=== PATIENT | female | born 1990 | race Caucasian/White ===

== ENCOUNTER 2024-09-15 07:25 | Outpatient (REF) | payer BC, SELFPAY ==
[2024-09-15 07:49] LABS: MANUAL DIFF FLAG NO
[2024-09-15 08:11] LABS: Basophils Absolute Auto 0.1 X10*3/uL (0.0-0.2); Basophils Percent Auto 1.1 % (0-2); Eosinophils Absolute Auto 0.3 X10*3/uL (0.0-0.4); Eosinophils Percent Auto 5.3 % (0-4); Hematocrit 40.1 % (37.0-47.0); Hemoglobin 13.1 g/dl (12.0-16.0); Imm Gran Abs Auto 0.01 X10*3/uL (0.00-0.03); Imm Gran Pct Auto 0.2 % (0.0-0.4); Lymphocytes Absolute Auto 2.4 X10*3/uL (1.2-4.9); Lymphocytes Percent Auto 44.2 % (20-40); Mean Corpuscular HGB Conc 32.7 g/dl (31.0-35.0); Mean Corpuscular Volume 88.9 fL (80.0-98.0); Mean Platelet Volume 9.3 fL (9.4-12.3); Monocytes Absolute Auto 0.4 X10*3/uL (0.1-1.2); Monocytes Percent Auto 7.4 % (2-11); Neutrophils Absolute Auto 2.3 x10*3/uL (2.0-8.3); Neutrophils Percent Auto 41.8 % (45-73); Platelet Count 373 X10*3/uL (160-400); Red Blood Count 4.51 X10*6/uL (4.20-5.50); Red Cell Distribution Width 12.5 % (11.0-16.0); White Blood Count 5.5 X10*3/uL (4.8-10.8)
[2024-09-15 08:19] LABS: Estimated Average Glucose 103 mg/dL; Hemoglobin A1C 113.2787 umol/L; Hemoglobin A1c % 5.2 % (<6.0); Total Hemoglobin (HGBA1C) 3438.8917 umol/L
[2024-09-15 08:20] LABS: Appearance Urine Clear; Color Urine Yellow; Glucose Urine UA Negative (Negative); Leukocyte Esterase Urine Small (1+) (Negative); Nitrite Urine Negative (Negative); PH 5.5 (5.0-9.0); UMIC TRIGGER UA YES; Urine Blood Large (3+) (Negative); Urine Ketones Negative (Negative); Urine Protein Negative (Neg-Trace)
[2024-09-15 08:21] LABS: UPreg QC Valid YES; Urine Pregnancy NEGATIVE (NEGATIVE)
[2024-09-15 08:32] LABS: Bacteria Urine None Seen (None Seen); Hyaline Casts Urine 0-2 /LPF (0-2); RBC Urine >20 /HPF (0-2); WBC Urine 0-5 /HPF (0-5)
[2024-09-15 08:49] LABS: Alanine Aminotransferase 17 U/L (0-31); Albumin Level 4.5 g/dL (3.5-5.0); Alkaline Phosphatase 75 U/L (39-117); Anion Gap 12 (12-20); Aspartate Amino Transferase 21 U/L (5-31); Bilirubin Total 0.4 mg/dL (0.0-1.0); Blood Urea Nitrogen 14 mg/dL (9-16); Calcium 9.3 mg/dL (8.4-10.2); Carbon Dioxide 22 mmol/L (22-29); Chloride 109 mmol/L (96-108); Cholesterol 205 mg/dL (<200); Estimated Glomerular Filt Rate > 60; Glucose Fasting 88 mg/dL (60-99); HDL Cholesterol 44 mg/dL (>40); Iron 112 mcg/dL (30-160); LDL Cholesterol Calculated 119 mg/dL (<100); Magnesium 1.9 mg/dL (1.6-2.6); Percent Iron Saturation 32 % (15-50); Potassium 3.9 mmol/L (3.3-5.1); Sodium 139 mmol/L (135-145); Total Iron Binding Capacity 345 mcg/dL (228-428); Total Protein 8.1 g/dL (6.5-8.0); Triglycerides 210 mg/dL (<150); Unsaturated Iron Binding 233 ug/dL
[2024-09-15 08:53] LABS: Erythrocyte Sedimentation Rate 17 MM/HR (0-20)
[2024-09-15 09:10] LABS: Free T4 (Free Thyroxine) 1.05 ng/dL (0.71-1.85); Thyroid Stimulating Hormone 1.72 uIU/mL (0.32-4.0); Vitamin D 25-OH Total 15.6 ng/mL (>30)
[2024-09-15 09:17] LABS: Folate 11.8 ng/mL (> or = 4.0); Vitamin B12 330 pg/mL (200-900)
[2024-09-16 17:59] LABS: Homocysteine 11.1 umol/L (<10.4)
[2024-09-18 18:08] LABS: Methylmalonic Acid 436 nmol/L (55-335)
[2024-09-19 17:33] LABS: Vitamin B6 5.7 ng/mL (2.1-21.7)
[2024-09-20 15:18] LABS: Vitamin B1 15 nmol/L (8-30)
== END 2024-09-15 07:26 | disposition home or self-care (01) ==
LOC: HO.LAB 07:25
PROVIDERS: PCP Physician Assistant; Visit Provider Psychiatry & Neurology Psychiatry
DX: F39 Unspecified mood [affective] disorder (principal); F41.1 Generalized anxiety disorder; Z13.1 Encounter for screening for diabetes mellitus
CPT/HCPCS: 36415; 80053; 80061; 81001; 81025; 82306; 82607; 82746; 83036; 83090; 83540; 83735; 83921; 84207; 84425; 84439; 84443; 85025; 85652

== ENCOUNTER → 2024-09-15 08:45 | Outpatient (BNV) | payer BC, SELFPAY | PROVIDERS: Visit Provider Psychiatry & Neurology Psychiatry | DX: F33.2 Major depressive disorder, recurrent severe without psychotic features (principal); F43.10 Post-traumatic stress disorder, unspecified; F41.1 Generalized anxiety disorder | CPT/HCPCS: 90792 ==

== ENCOUNTER 2024-10-05 09:45 | Outpatient (RCR) | payer BC, SELFPAY ==
[2024-09-07 11:42] VITALS: BMI 35.6
[2024-09-07 11:43] VITALS: BP 126/96; PULSE 76; TEMP 37.4
--- NOTE | 2024-09-07 12:30 | PC.ADMIT ---
Patient is a 34 year old female who was referred to PHP by her PCP d/t increased depression and anxiety. Patient is taking PAMELA from work d/t her symptoms and reports difficulty functioning for the past several months. Patient reports having depression sxs in the past and was usually able to get herself out of it however has been unable to do this at this time. Patient unable to identify stresses contributing to her symptoms. She did reports being on Lexapro for 2.5-3 years with good effect. Feels this is not working anymore. Patient reports having panic attack prior to going to work at her previous job and instead of calling out of work she reports she impulsively quit her previous job however reports she was able to get a new job in 2 days. Reports having her first appointment with psychiatric medication prescriber and was taken off Lexapro and put on Sertraline. Patient is alert and oriented x4, Calm and cooperative. She presented with depressed mood and tearful affect during the assessment. She denied SI currently however reports having passive thoughts when feeling overwhelmed with anxiety. Patient stated, It's in the background, no active thoughts or plans . Patient was given a copy of her safety plan if needed. Patient reports no motivation to do anything and decreased energy. She reports 50 lb weight gain over the past year. She reports feeling much guilt about not being able to function to the point she is spending much time in bed and her is taking over her responsibilities. She does report her is very supportive and is thankful to have him. Medications reconciled with patient and patient's pharmacy. She reports taking medications as prescribed.
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
--- NOTE | 2024-09-09 15:44 | PHP/IOPCOSI ---
Pt's case has been opened and reviewed in treatment team.
--- NOTE | 2024-09-17 18:26 | P.PNPSP_ITS ---
Subjective Subjective Date of Service: 09/17/24 Reason For Visit: depression,anxiety Interim History: Patient reports continued struggles with emotional regulation is up and down having crying spells getting easily overwhelmed feeling helpless and demoralized. Interfering with ADLs and overall functioning. She reports high levels of anxiety directly and indirectly related to childhood trauma and stress. She reports ?freezing a lot and having a lot of physical symptoms, racing heart, muscle tension, fatigue, weakness, sometimes wakes feeling sweaty. Some of her anxiety is complicated by POTS and she has been seen by a noc analyst and is currently on metoprolol ER 100 mg qd for elevated heart rate. Even her POTS being better managed, anxiety persists. The anxiety has been more noticable especially in the later afternoon and evenings, and wakes with anxiety and is prone to stressful dreams. She is not sure if it is just opening up in groups has made her feel more vulnerable, but has been definitely crying more and this past week. Feeling demoralized, helpless, transiently hopeless passive SI but denies any current thoughts of harming herself. Describes high emotional reactivity, some hypervigilance and ruminative thoughts. She relays history of being hypersensitive individual had some developmental history of toe-walking, delayed speech, tactile sensitivities. She recalls having to sign in director of cardiology service line in order to communicate due to language delays. Of note she was born 6 weeks premature. She is not aware of any developmental developmental diagnoses, learning delays, ADHD or autism spectrum. Medication Compliance: Yes Side effects from medications: No Attending Groups: Yes Review of Systems Acute medical concerns: No Mental Status Exam Mental Status Exam Narrative: Alert, oriented, in no acute distress. Calm, cooperative, engaged. No psychomotor agitation or neurovegetative retardation. Eye contact maintained. Mood depressed, affect variable, labile, no irritability or expansiveness. Speech normal. Thought process linear, coherent, no FOI/PAMELA. Thought content related to stressors, transient hopelessness/passive SI without any active SI, intention or plan to harm self. Denies AI or HI. Denies AH or VH. No paranoia or delusional content elicited. No evidence of psychosis. Insight and judgment - fair but adequate. 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 - Anosmia Assessment and Plan: lifelong symptom, denies any recall trauma, 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 Routine lab work ordered as indicated EKG, routine for baseline QTc for medication considerations as indicated UDS as indicated VS reviewed (09/07): abrefile, BP 126/96;?76 bpm Continue to monitor Patient educated on: diagnosis and medication risk/benefits Informed Consent: understands Reason for contiued partial hosp. stay Substantial Risk for: inability to function, rapid decompensation and med/psych decompensation Certification I certify that partial hospital treatment is medically necessary due to the symptoms and problems resulting from the patient's mental illness and the failure to treat the patient at the partial hospital level of care would likely result in the patient requiring inpatient psychiatric care which could not be prevented at a less intensive level of care. Total time managing care of this patient today __30__ minutes. Discharge Plan Discharge Attending provider: Yuridia Siddiqui Medications: New aripiprazole 2 mg tablet 2 mg PO BEDTIME Qty: 14 0RF prazosin 1 mg capsule 1 mg PO BEDTIME Qty: 14 0RF Continued metoprolol succinate 100 mg Tablet Extended Release 24 Hr 100 mg PO DAILY sumatriptan succinate 50 mg Tablet See Rx Instructions .ROUTE .COMPLEX PRN (Reason: Migraine Headache) Patient Comments: Patient stated she is taking this as prescribed and recently picked up a new prescription. Rx Instructions: do not exceed 4 doses per 24 hrs Take one on onset of migraine. MR in 2 hours if ineffective. Last filled 08/2023 topiramate 25 mg Tablet 50 mg PO DAILY Patient Comments: Patient stated she is taking this as prescribed and recently picked up a refill of the medication. Rx Instructions: Take one tab daily for one week then increase to 2 tabs daily. Last filled 06/30/24 #54. lorazepam [Ativan] 0.5 mg Tablet 0.5 mg PO DAILY PRN (Reason: Anxiety) hydroxyzine HCl 25 mg Tablet 25 mg PO QID PRN (Reason: Anxiety) naproxen 500 mg Tablet 500 mg PO BID Rx Instructions: Take first onset of migraine x 14 days. Last filled 09/08/24. Changed sertraline 25 mg Tablet 37.5 mg PO DAILY Qty: 45 0RF Print Language: Cam[place]onian
--- NOTE | 2024-09-20 16:51 | P.PNPSP_ITS ---
Subjective Subjective Date of Service: 09/20/24 Reason For Visit: depression,anxiety Interim History: Patient seen for follow-up. She started on Abilify 1 mg (half tablet) for the first 2 days and then increased dose to 2 mg yesterday. She has tolerated it well, Even at this low dose, I can feel there's a change. I do more stable.. I didn't end up crying all weekend, which was an amazing feat . Her family did notice a difference. She was able to shower is just generally function. She also started prazosin 1mg and took this on Friday and Friday nights however was experiencing some blurred vision during sleep when she would only that noticed when she woke up to check her phone at lights since blurry and brighter she denies any eye pain did not notice any vision changes by morning. She did not take prazosin last night and did not notice this occurrence last night. She is still having some difficulty with sleep, Abilify seems to help her fall asleep easier, but is not sedating enough to help her sleep through the night. She has a prescription for lorazepam however she doesnt take this as she feels it has never been helpful. She finds hydroxyzine much more helpful for anxiety and for sleep but uses it sparingly out of fear of tolerance. She says it is well tolerated, she is encouraged for the time being to take this make sure she is getting optimal sleep. Medication Compliance: Yes Side effects from medications: Yes (as noted) Attending Groups: Yes Review of Systems Acute medical concerns: No Mental Status Exam Mental Status Exam Narrative: Alert, oriented, in no acute distress. Calm, cooperative, engaged. No psychomotor agitation or neurovegetative retardation. Eye contact maintained. Mood less lability, affect variable, brighter, no irritability or expansiveness. Speech normal. Thought process linear, coherent, no FOI/PAMELA. Thought content related to stressors, transient hopelessness/passive SI without any active SI, intention or plan to harm self. Denies AI or HI. Denies AH or VH. No paranoia or delusional content elicited. No evidence of psychosis. Insight and judgment - fair but adequate. 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 - Anosmia Assessment and Plan: lifelong symptom, denies any recall trauma, 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 Plan continue Abilify 2 mg qd hold prazosin 1 mg qhs take hydroxyzine hcl 12.5-25 mg qhs as well as TID prn anxiety continue sertraline 50 mg qd (may consider further titration next week) continue other regular medications?- topiramate 50 mg qd, sumatriptan, naltrexone 500 mg BID, metoprolol 100 mg qam Routine lab work ordered as indicated EKG, routine for baseline QTc for medication considerations as indicated UDS as indicated VS reviewed (09/07): abrefile, BP 126/96;?76 bpm Continue to monitor Patient educated on: diagnosis and medication risk/benefits Informed Consent: understands Reason for contiued partial hosp. stay Substantial Risk for: med/psych decompensation Certification I certify that partial hospital treatment is medically necessary due to the symptoms and problems resulting from the patient's mental illness and the failure to treat the patient at the partial hospital level of care would likely result in the patient requiring inpatient psychiatric care which could not be prevented at a less intensive level of care. Total time managing care of this patient today _30___ minutes. Discharge Plan Discharge Attending provider: Yuridia Siddiqui Medications: New aripiprazole 2 mg tablet 2 mg PO BEDTIME Qty: 14 0RF prazosin 1 mg capsule 1 mg PO BEDTIME Qty: 14 0RF Continued metoprolol succinate 100 mg Tablet Extended Release 24 Hr 100 mg PO DAILY sumatriptan succinate 50 mg Tablet See Rx Instructions .ROUTE .COMPLEX PRN (Reason: Migraine Headache) Patient Comments: Patient stated she is taking this as prescribed and recently picked up a new prescription. Rx Instructions: do not exceed 4 doses per 24 hrs Take one on onset of migraine. MR in 2 hours if ineffective. Last filled 08/2023 topiramate 25 mg Tablet 50 mg PO DAILY Patient Comments: Patient stated she is taking this as prescribed and recently picked up a refill of the medication. Rx Instructions: Take one tab daily for one week then increase to 2 tabs daily. Last filled 06/30/24 #54. lorazepam [Ativan] 0.5 mg Tablet 0.5 mg PO DAILY PRN (Reason: Anxiety) hydroxyzine HCl 25 mg Tablet 25 mg PO QID PRN (Reason: Anxiety) naproxen 500 mg Tablet 500 mg PO BID Rx Instructions: Take first onset of migraine x 14 days. Last filled 09/08/24. Changed sertraline 25 mg Tablet 37.5 mg PO DAILY Qty: 45 0RF Print Language: [place] Telehealth Telehealth Telehealth Platform: Other (please specify) ([employer]) Location of provider rendering services: other (private office) Location of patient: other ([facility]) Patient Identification confirmed using: Name, : Yes Telehealth method: video Patient verbally consented to treatment: Yes
--- NOTE | 2024-09-21 23:13 | HO.PHPPROGNO ---
Subjective Subjective Date of Service: 09/21/24 Reason For Visit: depression,anxiety Interim History: Patient seen for follow-up regarding visual disturbance. Held prazosin and continued on Abilify 2 mg. She continues to experience photophobia is especially sensitive to lights when she wakes at night any source of light even with her eyes shut light can appear to be ?dropping a flickering. She notices it is worse when she wakes in the middle of the night and it takes about 2 minutes to stabilize (stroking). She also notices this problem even during the day if she closes her eyes for any extended amount of time or puts her head down when she opens her eyes lights will appear to be pulsating and flickering and takes a few minutes to radha. However light sensitivity persists through the day does improve later in the day but does not fully resolve. And does not appear to be any better since she has been holding the prazosin. She has been mindful to assess whether it is affecting her visual acuity; she put on her glasses at night and says there is no blurriness noted (so there does not appear to be any myopic shift). Appears to be more related to photophobia. In fact, she examined her pupils in the mirror witness strobing occurs and notices that even with shining a light in her eyes there is initially no pupillary response for a minute or 2, and then eventually her pupils begin to respond although somewhat sluggishly. She denies any eye pain but experiences something that feels like muscle tense this in or behind her eye. Despite these does not appear that they are triggering any migraines and she does not feel they are likely related to ora. Last migraine occurred over a week ago. She has has not had an eye exam for since 2022 and agrees to make an appointment schedule an appointment today. For now we will hold Abilify since symptoms started to occur on Friday (day 2) of taking ABilify. She will continue only on Zoloft at 50 mg. We increased the dose over a week ago (from 25 mg). If her vision problems do not improve/resolve with holding Abilify for the next few days, we will consider whether it is the Zoloft that is affecting her vision. She is not eager to stop the Abilify (but agrees with the rationale), says she has not felt this stable in a long time. She notes having a really good weekend feeling more upbeat and stable, and better able to function and engage in life. Most notably, did not cry or get over-emotional in the past 3 or 4 days which is ?unprecedented?. She is hoping to find a way to make the Abilify work. We discussed a trying to put it back on at 1 mg a day or perhaps splitting the dose to see if this is better tolerated for now will will hold Abilify in follow-up later in the week. Medication Compliance: Yes Side effects from medications: No Attending Groups: Yes Review of Systems Acute medical concerns: No Mental Status Exam Mental Status Exam Narrative: Alert, oriented, in no acute distress. Calm, cooperative, engaged. No psychomotor agitation or neurovegetative retardation. Eye contact maintained. Mood less lability, affect variable, brighter, no irritability or expansiveness. Speech normal. Thought process linear, coherent, no FOI/PAMELA. Thought content related to stressors, future-oriented, denies hopelessness or SI, intention or plan to harm self. Denies AI or HI. Denies AH or VH. No paranoia or delusional content elicited. No evidence of psychosis. Insight and judgment good. 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5 mg qhs continue other regular medications?- topiramate 50 mg qd, sumatriptan, naltrexone 500 mg BID, metoprolol 100 mg qam Routine lab work ordered as indicated EKG, routine for baseline QTc for medication considerations as indicated UDS as indicated VS reviewed (09/07): abrefile, BP 126/96;?76 bpm Continue to monitor Patient educated on: diagnosis, medication risk/benefits and medical condition Informed Consent: understands Reason for contiued partial hosp. stay Substantial Risk for: med/psych decompensation Certification I certify that partial hospital treatment is medically necessary due to the symptoms and problems resulting from the patient's mental illness and the failure to treat the patient at the partial hospital level of care would likely result in the patient requiring inpatient psychiatric care which could not be prevented at a less intensive level of care. Total time managing care of this patient today _40___ minutes. Discharge Plan Discharge Attending provider: Yuridia Siddiqui Medications: New aripiprazole 2 mg tablet 2 mg PO BEDTIME Qty: 14 0RF prazosin 1 mg capsule 1 mg PO BEDTIME Qty: 14 0RF ergocalciferol (vitamin D2) [Vitamin D2] 1,250 mcg (50,000 unit) capsule 1,250 mcg PO QWEEK Qty: 10 0RF clonazepam 0.5 mg tablet 0.25 mg PO BID Qty: 7 0RF Continued metoprolol succinate 100 mg Tablet Extended Release 24 Hr 100 mg PO DAILY sumatriptan succinate 50 mg Tablet See Rx Instructions .ROUTE .COMPLEX PRN (Reason: Migraine Headache) Patient Comments: Patient stated she is taking this as prescribed and recently picked up a new prescription. Rx Instructions: do not exceed 4 doses per 24 hrs Take one on onset of migraine. MR in 2 hours if ineffective. Last filled 08/2023 topiramate 25 mg Tablet 50 mg PO DAILY Patient Comments: Patient stated she is taking this as prescribed and recently picked up a refill of the medication. Rx Instructions: Take one tab daily for one week then increase to 2 tabs daily. Last filled 06/30/24 #54. lorazepam [Ativan] 0.5 mg Tablet 0.5 mg PO DAILY PRN (Reason: Anxiety) hydroxyzine HCl 25 mg Tablet 25 mg PO QID PRN (Reason: Anxiety) naproxen 500 mg Tablet 500 mg PO BID Rx Instructions: Take first onset of migraine x 14 days. Last filled 09/08/24. Changed sertraline 25 mg Tablet 37.5 mg PO DAILY Qty: 45 0RF Print Language: [place]
--- NOTE | 2024-09-24 23:52 | HO.PHPPROGNO ---
Subjective Subjective Date of Service: 09/23/24 Reason For Visit: depression,anxiety Interim History: So wemaeve, th SI is back Patient has marked decline in past 2 days since holding ABilify. Continued issues with vision, no change, not any better or worse.. I can look at the ground and see light pulsing still , complaints sound more like photophobia rather than worsening of myopia since says these disturbance does not appear to cause exacerbation of short-sightedness. Does not affect vision acuity. Will consider whether SSRI may be causing disturbance (laura given photophobia) rather than myopic shift which is more likely to be caused by neuroleptic. Will wait for findings from roll forming machine operator, she was able to secure an urgent appointment at 2:30 today. She will request findings to be faxed over to [facility]. She does not feel it is affecting her migraines nore does she feel it's related. She denies any eye pain or discomfort. Not associated with headache, dizziness, numbness or tingling. SI is intrusive and transient. Denies any specific plan, intention or urge to act on SI thoughts. Sleep, appetite stable. Medication Compliance: Yes Side effects from medications: Yes (as noted) Attending Groups: Yes Review of Systems Acute medical concerns: Yes patient has an eye appointment at 2:30pm Mental Status Exam Mental Status Exam Narrative: Alert, oriented, in no acute distress. Calm, cooperative, engaged. No psychomotor agitation or neurovegetative retardation. Eye contact maintained. Mood less lability, affect variable, brighter, still some tearfulness on and off noted. Speech normal. Thought process linear, coherent, no FOI/PAMELA. Thought content related to stressors, future-oriented, denies hopelessness or SI, intention or plan to harm self. Denies AI or HI. Denies AH or VH. No paranoia or delusional content elicited. No evidence of psychosis. Insight and judgment good. 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 - Anosmia Assessment and Plan: lifelong symptom, denies any recall trauma, 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 (5) Migraine: Status: Acute Code(s): G43.909 - Migraine, unspecified, not intractable, without status migrainosus (6) Visual disturbance: Status: Acute Code(s): H53.9 - Unspecified visual disturbance Assessment and Plan: bilateral (appears to be medication-related) appears to be more related to photophobia (rather than affecting accommodation or visual acuity) Plan continue PHP still holding Abilify still holding prazosin 1 mg qhs continue sertraline 50 mg qd for now may take hydroxyzine hcl 12.5-25 mg qhs as well as TID prn anxiety may take clonazepam 0.5 mg qhs prn (finds this helpful, will limit to 3x/wk) continue other regular medications?- topiramate 50 mg qd, sumatriptan, naltrexone 500 mg BID, metoprolol 100 mg qam Routine lab work ordered as indicated EKG, routine for baseline QTc for medication considerations as indicated UDS as indicated VS reviewed (09/07): abrefile, BP 126/96;?76 bpm Continue to monitor Patient educated on: diagnosis, medication risk/benefits and medical condition Informed Consent: understands Reason for contiued partial hosp. stay Substantial Risk for: inability to function, rapid decompensation and med/psych decompensation Certification I certify that partial hospital treatment is medically necessary due to the symptoms and problems resulting from the patient's mental illness and the failure to treat the patient at the partial hospital level of care would likely result in the patient requiring inpatient psychiatric care which could not be prevented at a less intensive level of care. Total time managing care of this patient today __40__ minutes. Discharge Plan Discharge Attending provider: Yuridia Siddiqui Medications: New prazosin 1 mg capsule 1 mg PO BEDTIME Qty: 14 0RF ergocalciferol (vitamin D2) [Vitamin D2] 1,250 mcg (50,000 unit) capsule 1,250 mcg PO QWEEK Qty: 10 0RF clonazepam 0.5 mg tablet 0.25 mg PO BID Qty: 7 0RF magnesium glycinate 100 mg magnesium capsule 200 mg PO DAILY Qty: 60 0RF Continued metoprolol succinate 100 mg Tablet Extended Release 24 Hr 100 mg PO DAILY sumatriptan succinate 50 mg Tablet See Rx Instructions .ROUTE .COMPLEX PRN (Reason: Migraine Headache) Patient Comments: Patient stated she is taking this as prescribed and recently picked up a new prescription. Rx Instructions: do not exceed 4 doses per 24 hrs Take one on onset of migraine. MR in 2 hours if ineffective. Last filled 08/2023 topiramate 25 mg Tablet 50 mg PO DAILY Patient Comments: Patient stated she is taking this as prescribed and recently picked up a refill of the medication. Rx Instructions: Take one tab daily for one week then increase to 2 tabs daily. Last filled 06/30/24 #54. hydroxyzine HCl 25 mg Tablet 25 mg PO QID PRN (Reason: Anxiety) sertraline 25 mg Tablet 25 mg PO DAILY Qty: 30 0RF aripiprazole 2 mg tablet 2 mg PO BEDTIME Qty: 30 0RF Discontinued lorazepam [Ativan] 0.5 mg Tablet 0.5 mg PO DAILY PRN (Reason: Anxiety) naproxen 500 mg Tablet 500 mg PO BID Rx Instructions: Take first onset of migraine x 14 days. Last filled 09/08/24. Stand Alone Forms: Patient Portal Discharge page Patient Education: Mood Disorders (DC), Depression (DC) Print Language: Polish
--- NOTE | 2024-09-24 23:59 | HO.PHPPROGNO ---
Subjective Subjective Date of Service: 09/24/24 Reason For Visit: depression,anxiety Interim History: Patient seen for follow up after having seeing passenger elevator operator yesterday, which she notes was a very frustrating experience. The doctor looked into my eyes for 3 seconds and said everything is fine... and told me it was all in my head . I reviewed the report from her eye doctor, noting posterior congenital cataracts bilaterally but no other pathology. She has been more emotional, continues to be tearful and experiences intrusive SI thoughts. DEnies intention, urge or plan to act on them but still finds them upsetting to have and distracting. Quality of life feels lower and is really eager to try getting back on the ABilify. WIll try cutting back on ZOloft to see if this may be the cause of the eye issue and will add on 1 mg of ABilify especially since no obvious signs of pathology were found on examination yesterday. Medication Compliance: Yes Side effects from medications: No Attending Groups: Yes Review of Systems Acute medical concerns: No Mental Status Exam Mental Status Exam Narrative: Alert, oriented, in no acute distress. Calm, cooperative, engaged. No psychomotor agitation or neurovegetative retardation. Eye contact maintained. Mood less lability, affect variable, brighter, no irritability or expansiveness. Speech normal. Thought process linear, coherent, no FOI/PAMELA. Thought content related to stressors, future-oriented, denies hopelessness or SI, intention or plan to harm self. Denies AI or HI. Denies AH or VH. No paranoia or delusional content elicited. No evidence of psychosis. Insight and judgment good. 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 - Anosmia Assessment and Plan: lifelong symptom, denies any recall trauma, 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 (5) Migraine: Status: Acute Code(s): G43.909 - Migraine, unspecified, not intractable, without status migrainosus (6) Visual disturbance: Status: Acute Code(s): H53.9 - Unspecified visual disturbance Assessment and Plan: bilateral (appears to be medication-related) Plan restart Abilify 1 mg qd still holding prazosin 1 mg qhs lower sertraline to 37.5 mg qd (if vision issues do not improve, will hold sertraline) take hydroxyzine hcl 12.5-25 mg qhs as well as TID prn anxiety may take clonazepam 0.5 mg qhs continue other regular medications?- topiramate 50 mg qd, sumatriptan, naltrexone 500 mg BID, metoprolol 100 mg qam Routine lab work ordered as indicated EKG, routine for baseline QTc for medication considerations as indicated UDS as indicated VS reviewed (09/07): abrefile, BP 126/96;?76 bpm Continue to monitor Patient educated on: diagnosis and medication risk/benefits Informed Consent: understands Reason for contiued partial hosp. stay Substantial Risk for: harm to self, inability to function and med/psych decompensation Certification I certify that partial hospital treatment is medically necessary due to the symptoms and problems resulting from the patient's mental illness and the failure to treat the patient at the partial hospital level of care would likely result in the patient requiring inpatient psychiatric care which could not be prevented at a less intensive level of care. Total time managing care of this patient today _30___ minutes. Discharge Plan Discharge Attending provider: Yuridia Siddiqui Medications: New aripiprazole 2 mg tablet 2 mg PO BEDTIME Qty: 14 0RF prazosin 1 mg capsule 1 mg PO BEDTIME Qty: 14 0RF ergocalciferol (vitamin D2) [Vitamin D2] 1,250 mcg (50,000 unit) capsule 1,250 mcg PO QWEEK Qty: 10 0RF clonazepam 0.5 mg tablet 0.25 mg PO BID Qty: 7 0RF aripiprazole 1 mg/mL solution 2 mg PO DAILY Qty: 150 0RF Continued metoprolol succinate 100 mg Tablet Extended Release 24 Hr 100 mg PO DAILY sumatriptan succinate 50 mg Tablet See Rx Instructions .ROUTE .COMPLEX PRN (Reason: Migraine Headache) Patient Comments: Patient stated she is taking this as prescribed and recently picked up a new prescription. Rx Instructions: do not exceed 4 doses per 24 hrs Take one on onset of migraine. MR in 2 hours if ineffective. Last filled 08/2023 topiramate 25 mg Tablet 50 mg PO DAILY Patient Comments: Patient stated she is taking this as prescribed and recently picked up a refill of the medication. Rx Instructions: Take one tab daily for one week then increase to 2 tabs daily. Last filled 06/30/24 #54. lorazepam [Ativan] 0.5 mg Tablet 0.5 mg PO DAILY PRN (Reason: Anxiety) hydroxyzine HCl 25 mg Tablet 25 mg PO QID PRN (Reason: Anxiety) naproxen 500 mg Tablet 500 mg PO BID Rx Instructions: Take first onset of migraine x 14 days. Last filled 09/08/24. Changed sertraline 25 mg Tablet 37.5 mg PO DAILY Qty: 30 0RF Print Language: Ethiopian
--- NOTE | 2024-09-30 16:00 | HO.PHP ---
This blurb writer planned to meet with Trang Jodi after some concerning statements in group 3 risk assessment about how she was doing worse and more anxious for different reasons. She was observed to be crying in group 4, and she moved herself into group room A. This blurb writer probed what was wrong in which she stated that during lunch her provider which acts as her therapist and prescriber is no longer her provider with unclear reason as to why. In addition this provider ahs filled her leave paperwork, and she is unsure if this was all set. She also saw an email from her insurance regarding payment for services for the program, and she needed to go talk to her guest relation officer about a return to work. This blurb writer provided positive reassurance and suggested she call the agency the provider works out of to clarify if they are referring her to someone else as they should be ethically responsible to do. This blurb writer stated that we would work with her, and that she does not have to discharge tomorrow, and the program will ensure there is a safe plan in place before doing so. This appeared receptive. This blurb writer stated that she will follow-up with Trang Zapata tomorrow about any further answers and discussion with the team. ASTRID
--- NOTE | 2024-10-01 13:41 | P.PNPSP_ITS ---
Subjective Subjective Date of Service: 10/01/24 Reason For Visit: depression,anxiety Interim History: Patient reports mood has been up and down. Has been a little better since starting back on the Abilify 1 mg. Intrusive thoughts and lows less intense. But still struggling with functioning getting out due to difficulties regulating emotion and managing anxiety. Nonetheless says she feels better back on the Abilify compared to last week. On a bright note she reports diminished ania tophobia/visual distortion are considerably better since lowering the dose of Zoloft which is at 37.5 mg. She is eager to continue titrating the Abilify we will plan to increase to 1 mg twice a day in the afternoon and evening. We will also lower dose of Zoloft to 25 mg. She also notes that she got approval from her job to continue taking time off for the next several weeks in inquires about IOP stating she is interested in extending her treatment. Some difficulties with falling asleep may be helped with [id number] magnesium glycinate starting at 200 mg at night. Mental Status Exam Mental Status Exam Narrative: Alert, oriented, in no acute distress. Calm, cooperative, engaged. No p sychomotor agitation or neurovegetative retardation. Eye contact maintained. Mood less lability, affect variable, brighter, still some tearfulness on and off noted. Speech normal. Thought process linear, coherent, no FOI/PAMELA. Thought content related to stressors, future-oriented, denies hopelessness or SI, intention or plan to harm self. Denies AI or HI. Denies AH or VH. No paranoia or delusional content elicited. No evidence of psychosis. Insight and judgment good. 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 - Anosmia Assessment and Plan: lifelong symptom, denies any recall trauma, 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 (5) Migraine: Status: Acute Code(s): G43.909 - Migraine, unspecified, not intractable, without status migrainosus (6) Visual disturbance: Status: Acute Code(s): H53.9 - Unspecified visual disturbance Assessment and Plan: bilateral (appears to be medication-related) Plan continue PHP increase Abilify 1 mg to BID still holding prazosin 1 mg qhs lower sertraline to 25 mg qd may take hydroxyzine hcl 12.5-25 mg qhs as well as TID prn anxiety may take clonazepam 0.5 mg qhs prn (finds this helpful, will limit to 3x/wk) continue other regular medications?- topiramate 50 mg qd, sumatriptan, naltrexone 500 mg BID, metoprolol 100 mg qam Routine lab work ordered as indicated EKG, routine for baseline QTc for medication considerations as indicated UDS as indicated VS reviewed (09/07): abrefile, BP 126/96;?76 bpm Continue to monitor Certification I certify that partial hospital treatment is medically necessary due to the symptoms and problems resulting from the patient's mental illness and the failure to treat the patient at the partial hospital level of care would likely result in the patient requiring inpatient psychiatric care which could not be prevented at a less intensive level of care. Total time managing care of this patient today ____ minutes. Discharge Plan Discharge Attending provider: Yuridia Siddiqui Medications: New aripiprazole 2 mg tablet 2 mg PO BEDTIME Qty: 14 0RF prazosin 1 mg capsule 1 mg PO BEDTIME Qty: 14 0RF ergocalciferol (vitamin D2) [Vitamin D2] 1,250 mcg (50,000 unit) capsule 1,250 mcg PO QWEEK Qty: 10 0RF clonazepam 0.5 mg tablet 0.25 mg PO BID Qty: 7 0RF aripiprazole 1 mg/mL solution 2 mg PO DAILY Qty: 150 0RF magnesium glycinate 100 mg magnesium capsule 200 mg PO DAILY Qty: 60 0RF Continued metoprolol succinate 100 mg Tablet Extended Release 24 Hr 100 mg PO DAILY sumatriptan succinate 50 mg Tablet See Rx Instructions .ROUTE .COMPLEX PRN (Reason: Migraine Headache) Patient Comments: Patient stated she is taking this as prescribed and recently picked up a new prescription. Rx Instructions: do not exceed 4 doses per 24 hrs Take one on onset of migraine. MR in 2 hours if ineffective. Last filled 08/2023 topiramate 25 mg Tablet 50 mg PO DAILY Patient Comments: Patient stated she is taking this as prescribed and recently picked up a refill of the medication. Rx Instructions: Take one tab daily for one week then increase to 2 tabs daily. Last filled 06/30/24 #54. lorazepam [Ativan] 0.5 mg Tablet 0.5 mg PO DAILY PRN (Reason: Anxiety) hydroxyzine HCl 25 mg Tablet 25 mg PO QID PRN (Reason: Anxiety) naproxen 500 mg Tablet 500 mg PO BID Rx Instructions: Take first onset of migraine x 14 days. Last filled 09/08/24. Changed sertraline 25 mg Tablet 37.5 mg PO DAILY Qty: 30 0RF Print Language: Polish
== END 2024-10-05 23:59 | disposition home or self-care (01) ==
LOC: HO.PHPA 09:45
PROVIDERS: Visit Provider Psychiatry & Neurology Psychiatry
DX: F33.2 Major depressive disorder, recurrent severe without psychotic features (principal); F43.10 Post-traumatic stress disorder, unspecified; F41.1 Generalized anxiety disorder; R43.0 Anosmia; G43.909 Migraine, unspecified, not intractable, without status migrainosus; H53.9 Unspecified visual disturbance; Z79.899 Other long term (current) drug therapy
CPT/HCPCS: 90791; 90853